=== PATIENT | female | born 1960 | race Caucasian/White ===

== ENCOUNTER → 2016-10-31 | Day surgery (SDC) | payer OTHER, MEDICARE ==
[~2016-10-31] MED LIST: ALBUTEROL17 GM INH; AMITRIPTYLINE H25 MG PO; EFFEXOR75 M3; IMODIUM A-D2 M2; MACRODANTIN; MAG-OX 400400 MG; MORPHINE PAIN PUMP; MULTI-DAY VITA1 EACH; OMEPRAZOLE40 M1 PO; SIMVASTATIN40 MG PO; ZANAFLEX PO
--- NOTE | ~2016-10-31 | OR ---
Unit #: [id number] #: [id number] Patient: JAIMIE ESTRADA [id number] [address] [place], [place] [address] [id number] O MR#: [id number] NAME: JAIMIE ESTRADA ROOM: Date of Procedure: 10/31/2016 Admission Date: 10/31/2016 Surgeon: Cole Campbell M.D. : 1960 Attending Physician: Cole Campbell M.D. Referring Physician: Cole Campbell M.D. Primary Care Physician: Abdiel Lozano M.D. OPERATIVE REPORT PREOPERATIVE DIAGNOSIS Malfunction of intrathecal Codman pain pump. POSTOPERATIVE DIAGNOSIS Malfunction of intrathecal Codman pain pump. PROCEDURES PERFORMED 1. Removal of Codman 3000 intrathecal pump. 2. Implantation of Medtronic SynchroMed II intrathecal pump. 3. Implantation of Ascenda catheter. 4. Physician filling of pump. 5. Fluoroscopy. SURGICAL INDICATION RATIONALE Ms. Jaimie Estrada is a pleasant 56-year-old female, who has been having intractable low back pain secondary to her spinal surgery. The patient has had an intrathecal pump Codman 3000 for well over 10 years. The patient has been complaining about progressively increasing pain and evaluation of the catheter revealed that we could not see the catheter in the intrathecal space. However, the patient is morbidly obese and this may also have complicated visualization of the catheter. A decision was made at this time to explant the Codman 3000 pump and implant a SynchroMed Medtronic pump in its place. The patient was agreeable to this and the patient also had an in-detail discussion regarding the risks, benefits, and alternatives available including discussions regarding the consent decree. I discussed with the patient in great detail about this and all the patient's questions regarding the consent decree and the risks, benefits, and alternatives available were answered to her satisfaction. I used a teach back method to make sure that the patient understood my explanations. Renetta Hernandez with Medtr[employer] neuromodulation also had a discussion with the patient regarding the consent decree and all the patient's questions were answered to her satisfaction. The patient also has had a cardiac clearance and no contraindications were seen. DESCRIPTION OF PROCEDURE After obtaining full informed consent and after discussion with the patient of possible complications including infection, bleeding, paralysis, mild headaches, , and other perioperative complications were discussed with the patient and consent was obtained in front of nurse Ilsa. I did have an in-detail discussion with the patient and her about the surgical approach to the surgery. I did tell them that we would do this in a 2 phased approach. The patient would be first placed prone Unit #: [id number] #: [id number] Patient: JAIMIE ESTRADA and the catheter would be visualized and if it was not present, we would place a new Ascenda catheter along with an intrathecal pain pump Medtronic in the right side of her low back. Subsequently, we turned her into the supine position and explore the old pump and removed in its entirety. The patient was then taken back to the operating room, where a time-out was done in accordance to the joint commission guidelines where the patient's identity, procedure, and site of procedure were verified. The anesthesiologist induced general anesthesia and positioned the patient in prone position. The anesthesiologist supervised all pressure points that were padded. Then under fluoroscopic view, I was able to visualize the L2-3 interspace after the patient was prepped and draped in the usual fashion. The patient also received antibiotic coverage 30 minutes before entering the operating room. Once the L2-3 interspace was identified, the skin target sites were anesthetized and I made an incision using a #10-blade. The incision was made and I used the help of the Bovie to create space in the underlying tissue to house the Tuohy needle along with the catheter. Once this was done, I placed a marker over the right side of her low back measuring 6 cm in length and made an incision over the skin after the skin was anesthetized. Then, I used the Bovie to create a pocket which I was able to do easily. The 2 incisions were then carefully irrigated with irrigant. I then used a 17-gauge Tuohy needle to access the intrathecal space under live fluoroscopic view. Once the intrathecal space was accessed and I was able to visualize the flow of CSF, I navigated an Ascenda catheter through the Tuohy needle to reach the upper border of T7 which was done under live fluoroscopic view. Once this was done, the stylet along with the Tuohy needle were removed and I used a special anchoring device to anchor this catheter to the interspinous ligament. This anchor was further fortified using 3-0 Prolene sutures. I then used a tunneling device to tunnel this catheter into the pocket and this catheter was cut to size and I used a special adapter to adapt this catheter to a second piece of catheter which was kept connected to the intrathecal pump. I aspirated the intrathecal pump using a side-port with a 24-gauge Mendoza needle. Clear flow of CSF was seen. I then placed a TyRx pump into the pocket and placed the pocket which fit snugly into the pocket. I secured it to the underlying tissue using 3-0 Prolene sutures. The 2 incisions were then closed using interrupted Vicryl sutures in 2 layers and the skin was approximated with altagracia. The patient's pump was filled using morphine at 5 mg/mL and I have started the patient's dose at 0.35 mg per day and the patient can access her patient hearing therapy director at 0.03 mg with the ability to have 3 activations per day. The patient's total maximum daily dose would be 0.4398 with maximum activations. The patient was then turned into the supine position and she was prepped and draped again. Again, the incision over the old pump was incised after the skin target sites were anesthetized and without much difficulty I was able to access the Codman 3000 pump. I also saw that the catheter had been completely explanted and was wound around the pump. The pump along with the catheter was removed in its entirety. This pocket was then copiously irrigated with irrigant and closed using interrupted Vicryl sutures in 2 layers. The skin was approximated with altagracia. I then used a Telfa and Tegaderm dressing for all 3 incisions. The patient was then brought back to the recovery room for neurological monitoring. PLAN OF CARE The patient was discharged home neurologically intact with plans to return to my office in 7 days to have her altagracia removed. The patient did request to have her primary doctor to remove the altagracia which I was agreeable to. I have also had a discussion with the patient's regarding the course of the surgical procedure. The patient and her Unit #: [id number] #: [id number] Patient: JAIMIE ESTRADA acknowledges understanding of all the risks, benefits, and alternatives available and would like to proceed. Dictated by... Devon Chung/sandra TD: 11/01/2016 07:50 JOB #: [id number] OPERATIVE REPORT Page 1 of 1 X Cole Campbell MD PROCEDURE OPERATIVE NOTE
--- NOTE | ~2016-10-31 | EKG ---
PATIENT: TORRI AYON UNIT #: [id number] Ventricular Rate: 70 BPM Atrial Rate: 70 BPM P-R Interval: 164 ms QRS Duration: 108 ms Q-T Interval: 416 ms QTC Calculation(Bezet): 449 ms P [place]: 59 degrees Calculated R [place]: -30 degrees Calculated T [place]: 7 degrees Diagnosis Line: Normal sinus rhythm Diagnosis Line: Left axis deviation Diagnosis Line: Low voltage QRS Diagnosis Line: Abnormal ECG Diagnosis Line: No previous ECGs available Diagnosis Line: Confirmed by AL SCRUGGS MD ([id number]) on Diagnosis Line: 11/01/2016 9:02:44 AM INTERPRETING MD: KAEL SANCHEZ
[2016-10-31 08:32] LABS: CREATININE SERUM 0.8 mg/dL (0.6-1.4); GLOM FILT RATE Estimated 81.9 mL/min (>60); POTASSIUM 3.7 mmol/L (3.5-5.1)
== END | disposition home or self-care (01) ==
LOC: CSUR 07:08
PROVIDERS: Specialist
DX: T85.615A Breakdown (mechanical) of other nervous system device, implant or graft, initial encounter (principal); M54.5 Low back pain; E66.01 Morbid (severe) obesity due to excess calories; Z68.41 Body mass index [BMI] 40.0-44.9, adult; I10 Essential (primary) hypertension; K21.9 Gastro-esophageal reflux disease without esophagitis; I51.9 Heart disease, unspecified; R06.00 Dyspnea, unspecified; R60.9 Edema, unspecified; Z79.899 Other long term (current) drug therapy; Z87.442 Personal history of urinary calculi; Z98.890 Other specified postprocedural states; Z90.49 Acquired absence of other specified parts of digestive tract
CPT/HCPCS: 77003; 80048; 82947; 93005; C1772; J0330; J0690; J2250; J2405; J2710; J3010